=== PATIENT | female | born 1960 | race Caucasian/White ===

== ENCOUNTER 2022-03-22 23:16 | Emergency (ER) | payer OTHER ==
[2022-03-23 00:18] LABS: HEMOGLOBIN 12.4 gm/dl (12.3-15.3); RED BLOOD COUNT 3.99 M/UL (4.00-5.10); WHITE BLOOD COUNT 10.7 K/UL (4.5-11.0)
[2022-03-23 00:41] LABS: BUN/CREATININE RATIO 20 (0-10)
[2022-03-23] MEDS ORDERED: K-TAB ER20 MEQ PO (02:27)
[2022-03-23] MEDS ORDERED: DOXYCYCLINE HY100 MG PO (03:08)
== END 2022-03-23 03:17 | disposition home or self-care (01) ==
LOC: ER1 23:16
PROVIDERS: Physician Assistant
DX: M16.11 Unilateral primary osteoarthritis, right hip (principal); E87.6 Hypokalemia; R60.0 Localized edema; J44.9 Chronic obstructive pulmonary disease, unspecified; F17.210 Nicotine dependence, cigarettes, uncomplicated; Z88.0 Allergy status to penicillin; Z88.1 Allergy status to other antibiotic agents; Z88.8 Allergy status to other drugs, medicaments and biological substances; Z88.5 Allergy status to narcotic agent
CPT/HCPCS: 71045; 72192; 73502; 80053; 82550; 82553; 83880; 84439; 84443; 84484; 85025; 93005; 94640; 94664; 99284